=== PATIENT | female | born 1975 | race Caucasian/White ===

== ENCOUNTER 2017-07-28 14:10 | Emergency (ER) | payer OTHER ==
[~2017-07-28] VITALS: Ht 157.5 cm; Wt 79.5 kg
[~2017-07-28 14:10] MED LIST: ADVIL200 MG PO; BENTYL20 MG PO; CELEBREX100 MG PO; CENTRUM COMPLE1 EACH PO; DICYCLOMINE HCL10 MG PO; FERROUS SULFAT325 MG PO; FIORICET,ESG1 TABLET PO; FORTAMET1000 M1 PO; GLUCOPHAGE500 MG PO; HYDROCHLOROTHIA25 MG PO; HYDROCODON-ACE1 EAC7 PO; LISINOPRIL-HCT1 EAC3 PO; LISINOPRIL10 MG PO; METFORMIN HCL500 M1 PO; METFORMIN HCL500 MG PO; PRAVACHOL40 MG PO; PRAVASTATIN SOD20 MG PO; PRILOSEC40 MG PO; SLOW RELEASE I160 MG PO; SUPER B-50 COM1 EACH PO; VITAMIN B12-FO1 EACH PO; ZOFRAN ODT4 MG PO
[2017-07-28] MEDS ORDERED: FIORICET 50-301 EAC1 PO (17:40)
[2017-07-28] MEDS ORDERED: ZOFRAN ODT4 MG PO (17:40)
[2017-07-28 17:48] VITALS: BP 165/95
== END 2017-07-28 17:49 | disposition home or self-care (01) ==
LOC: EME 14:10
DX: R51 Headache (principal); I10 Essential (primary) hypertension; E11.9 Type 2 diabetes mellitus without complications; K21.9 Gastro-esophageal reflux disease without esophagitis; Z98.84 Bariatric surgery status; Z88.0 Allergy status to penicillin
CPT/HCPCS: 70450; 99281; 99285; J1885

== ENCOUNTER → 2017-09-07 | Outpatient (CLI) | payer OTHER ==
[~2017-09-07] MED LIST changes: +FIORICET 50-301 EAC1 PO
== END | disposition home or self-care (01) ==
LOC: EKG 14:00
DX: Z01.810 Encounter for preprocedural cardiovascular examination (principal); R00.1 Bradycardia, unspecified
CPT/HCPCS: 93005